=== PATIENT | female | born 1950 | race African-American/Black ===

== ENCOUNTER 2017-07-22 06:03 | Day surgery (SDC) | payer MEDICARE, BC ==
[~2017-07-22 06:03] MED LIST: ACETAMINOPHEN 1,000 MG/100 ML BTL IV ONE; CEFAZOLIN 1 Gram 1 GM/50 ML BAG IVPB ONE; FAMOTIDINE 20MG TABLET PO ONE; MECLIZINE 25 MG TABLET PO ONE; METOCLOPRAMIDE 10 MG TABLET PO ONE
[2017-07-22] MEDS ORDERED: HYDROMORPHONE HCL 2 MG/ML VIAL IV ONE (06:04)
[2017-07-22] MEDS ORDERED: BUPIVACAINE 0.5% W/EPI MPF 30 ML VIAL IVP ONE (06:04)
[2017-07-22] MEDS ORDERED: DEXAMETHASONE 4 MG/ML 1ML VIAL IVP ONE (06:04)
[2017-07-22] MEDS ORDERED: SEVOFLURANE 250 ML INH ONE (06:04)
[2017-07-22] MEDS ORDERED: MIDAZOLAM HCL 2MG/2ML VIAL IV ONE (06:04)
[2017-07-22] MEDS ORDERED: PROPOFOL 10 MG/ML VIAL IV ONE (06:04)
[2017-07-22] MEDS ORDERED: LIDOCAINE 2% MDV (20MG/ML) 20ML VIAL IV ONE (06:04)
[2017-07-22] MEDS ORDERED: KETOROLAC 30 MG/ML VIAL IVP ONE (06:04)
[2017-07-22] MEDS ORDERED: FENTANYL PF 100MCG/2ML VIAL IV ONE (06:04)
[2017-07-22] MEDS ORDERED: ROCURONIUM BROMIDE 50MG/5ML VIAL IV ONE (06:04)
[2017-07-22] MEDS ORDERED: ONDANSETRON HCL IV 4 MG/2 ML VIAL IVP ONE (06:04)
[2017-07-22 06:20] LABS: BASO % 0.2 % (0-6); EOS % 1.7 % (0-6); GRAN % 61.2 % (47-80); HEMATOCRIT 36.8 % (35.0-47.0); HEMOGLOBIN 11.4 gm/dl (11.6-16.0); LYMPH % 27.5 % (16-45); MEAN CELL VOLUME 94.1 fl (81-97); MEAN PLATELET VOLUME 10.1 fl (7.4-10.4); MONO % 9.4 % (0-9); PLATELET COUNT 230 K/uL (130-400); RED BLOOD COUNT 3.91 M/uL (3.80-5.40); RED CELL DISTRIBUTION WIDTH 12.5 % (11.5-14.5); WHITE BLOOD COUNT W/O DIFF 5.4 K/uL (4.2-12.2)
[2017-07-22 06:21] LABS: MEAN CORPUSCULAR HEMOGLOBIN 29.1 pg (27-33)
[2017-07-22] MEDS ORDERED: PANTOPRAZOLE SODIUM 40 MG TABLET PO PRN (11:05)
[2017-07-22] MEDS ORDERED: ONDANSETRON HCL IV 4 MG/2 ML VIAL IVP PRN (11:06)
[2017-07-22] MEDS ORDERED: DIAZEPAM 5 MG TABLET PO PRN (11:06)
[2017-07-22] MEDS ORDERED: HYDROCODONE/APAP 5/325MG TABLET PO PRN (11:06)
[2017-07-22] MEDS ORDERED: DIAZEPAM 5MG/ML **10ML VIAL IVP PRN (11:07)
[2017-07-22] MEDS ORDERED: MORPHINE SULFATE 4MG/ML PREFILLED SYRINGE IVP PRN ×3 (11:07→11:08)
[2017-07-22] MEDS: CEFAZOLIN 1 Gram 1 GM/50 ML BAG IVPB SCH (15:42)
[2017-07-22] MEDS: RINGERS SOLUTION,LACTATED 1,000 ML IV SCH (18:05)
[2017-07-22] MEDS ORDERED: LEVETIRACETAM 750 MG PO SCH (22:00)
[2017-07-23] MEDS: CEFAZOLIN 1 Gram 1 GM/50 ML BAG IVPB SCH ×2 (00:31→07:02)
[2017-07-23] MEDS: RINGERS SOLUTION,LACTATED 1,000 ML IV SCH ×2 (00:34→09:15)
[2017-07-23] MEDS: HYDROCODONE/APAP 5/325MG TABLET PO PRN ×2 (07:01→14:39)
[2017-07-23] MEDS ORDERED: ENOXAPARIN 40 MG/0.4 ML SYR SQ SCH (10:00)
[2017-07-23] MEDS ORDERED: FOLIC ACID 1 MG TABLET PO SCH (10:00)
[2017-07-23] MEDS ORDERED: NYSTATIN 15 GM POWDER TP SCH (10:00)
[2017-07-23] MEDS ORDERED: MULTIVITAMINS/MINERALS TABLET PO SCH (10:00)
--- NOTE | 2017-07-23 13:10 | Operative Note ---
DATE OF SURGERY: 07/22/2017 PREOPERATIVE DIAGNOSES: 1. Massive weight loss. 2. History of morbid obesity. 3. Chronic panniculitis. 4. Abdominal wall deformity and skin excess. POSTOPERATIVE DIAGNOSES: 1. Massive weight loss. 2. History of morbid obesity. 3. Chronic panniculitis. 4. Abdominal wall deformity and skin excess. OPERATION: Entuv-na-Wae abdominoplasty with plication. Surgeon: Bijan Cuadra MD Anesthesia: General. Estimated Blood Loss: Minimal. DRAINS: A 15 round Jh. SPECIMENS: 1700 g of total tissue. Indication: The patient is a very nice patient who had significant weight loss greater than 100 pounds which is maintained for several years. Unfortunately, she has a significant amount of skin excess which causes her chronic irritation in the suprapubic/inguinal areas. PROCEDURE: The patient was interviewed preoperatively. Operative plan was reviewed. She was marked midline in the standing position as well as inguinal creases for landmarks. She was then taken to the operating room with PDS stockings after induction of uncomplicated general anesthesia. All pressure points well padded and protected. We prepped and draped in the usual sterile manner. We circumscribed her umbilicus using a 15 blade leaving a well-vascularized stalk. We then incised along the inferior aspect down through dermis and then using unipoint cautery for hemostasis, dissected in a suprafascial plane. We did leave a layer of lymphatics and vessels on the fascia to help reduce instance of seroma. This dissection was taken up around the umbilicus to the xiphoid and costal margins. We then defatted the pubic area significantly. We then plicated using a looped 0 PDS. Upon completion of the plication, we then placed 40 mL of subfascial 0.5% Marcaine with epinephrine. We then sat her up approximately 45 degrees, proceeded with longitudinal skin ellipse. Closed temporarily and then advanced lateral to medial taking up the excess in the midline. We then marked her for the vertical skin excision. We then removed the robert and proceeded with vertical skin excision. A 15 round Eliecer-King was placed and secured with 3-0 nylon. We then lined up the midlines first and then advanced again from lateral to medial. Final closure was done using interrupted Infrasorb deep dermal staplers every 0.5 cm and then running 3-0 Monocryl. Umbilicus was brought out in the midline and secured with Monocryl. Sterile dressings were applied. She tolerated the procedure well without complication. At no time did the flaps show any signs of ischemia. MARQUISE
--- NOTE | 2017-07-29 07:11 | Discharge Summary ---
DATE OF ADMISSION: 07/22/2017 DATE OF DISCHARGE: 07/23/2017 DISCHARGE DIAGNOSIS: Massive weight loss, status post panniculectomy. PROCEDURE: Sakkw-dp-[id number] abdominoplasty. COMPLICATIONS: None. DISCHARGE DISPOSITION: Good. HISTORY AND HOSPITAL COURSE: This is a very nice patient who underwent [id number] abdominoplasty post massive weight loss. This was due to chronic skin irritation, yeast infections, and rashes. Postop course was uncomplicated. At discharge, her flaps are well vascularized, no signs of hematomas. She was ambulating and very comfortable. Very specific instructions given for care followup and medications. MARQUISE
== END 2017-07-23 16:10 | disposition home or self-care (01) ==
LOC: SUR 06:03 → MEDSURG 10:51 → SUR 07-23 16:10
PROVIDERS: ATTEND Plastic Surgery
DX: R63.4 Abnormal weight loss (principal); M79.3 Panniculitis, unspecified; M95.8 Other specified acquired deformities of musculoskeletal system; L98.7 Excessive and redundant skin and subcutaneous tissue; E66.01 Morbid (severe) obesity due to excess calories; K21.9 Gastro-esophageal reflux disease without esophagitis; R56.9 Unspecified convulsions
CPT/HCPCS: 80048; 85025; J1650; J1885; J2405; J7120